=== PATIENT | male | born 1985 | race African-American/Black ===

== ENCOUNTER 2019-05-18 22:21 | Emergency (ER) | payer SELFPAY ==
[~2019-05-18] VITALS: Ht 186.7 cm; Wt 122.9 kg
[2019-05-18 22:28] VITALS: Ht 186.7 cm; Wt 122.9 kg
[2019-05-19] MEDS ORDERED: KETOROLAC 60 MG INJ IM STA (04:09)
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
[2019-05-19] MEDS ORDERED: IBUP800T48 PO (04:19)
[2019-05-19] MEDS ORDERED: TIZA4TAB PO (04:19)
[2019-05-19] MEDS ORDERED: METHOCARBAMOL 750 MG TAB PO ONE (04:30)
[2019-05-19 05:27] VITALS: BP 118/80; PULSE 53; RESP 18
== END 2019-05-19 05:28 | disposition home or self-care (01) ==
LOC: FTE 22:21
DX: M54.5 Low back pain (principal); M54.2 Cervicalgia
CPT/HCPCS: 96372; 99284; J1885